=== PATIENT | female | born 1995 | race Caucasian/White ===

== ENCOUNTER 2017-06-15 10:12 | Inpatient (IN) | payer OTHER ==
[~2017-06-15] VITALS: Ht 162.6 cm; Wt 45.4 kg
--- NOTE | ~2017-06-15 | FU ---
[facility] Nutrition Therapy DATE: 06/18/17 Patient: KARIN FELIX Physician: SRIRAM Address: [address] [facility] Room/Bed: [address] [place] [address], Zip: [place] [address] Admit Date: 06/15/17 Date of : [birth year] Height: 5 4 Weight: 100 45.4 NUTRITION MONITORING/FOLLOW-UP: Reason: DIET EDUCATION CONSULT RE: GASTROPARESIS RD PROVIDED WRITTEN AND VERBAL GASTROPARESIS DIET EDUCATION. RD PROVIDED LIST OF FOODS TO AVOID/LIMIT AND FOODS TO EAT MORE OFTEN. PT REPORTS CONSUMING FRIED FOODS WELL DRINKING SODAS DAILY. RD ENCOURAGED HEALTHER OPTIONS OF COOKING FOODS AND ENCOURAGED PT TO CUT BACK ON SODA INTAKE AND DRINK MORE WATER. PT DEMONSTRATED UNDERSTANDING OF THE TOPIC. RD WAS ABLE TO ANSWER QUESTIONS APPROPRIATELY. RD TO REMAIN AVAILABLE. RECOMMENDATIONS: 1. ADVANCE DIET TOLERATED OT LOW FAT RD WILL F/U PER PROTOCOL Respectfully, MIESHA MARTINEZ MS, RD, LD [facility] cc: client file
--- NOTE | ~2017-06-15 | DS ---
Unit #: [id number] #: [id number] Patient: KARIN FELIX [id number] [address] [place], [place] [address] [id number] I MR#: [id number] NAME: KARIN FELIX ROOM: 238 Age: 21 Sex: F Admission Date: 06/15/2017 : 1995 Discharge Date: 06/18/2017 Attending Physician: Donny Jean Baptiste M.D. Primary Care Physician: Irene Saldaña M.D. DISCHARGE SUMMARY REASON FOR ADMISSION Intractable nausea, vomiting, abdominal pain/diarrhea. HISTORY OF PRESENT ILLNESS/HOSPITAL COURSE Patient is a 21-year-old female with no significant past medical history, presented secondary to nausea, vomiting, diarrhea, abdominal pain. Sodium initially was noted to be 125, potassium 2.9. She was placed on Med/Surg floor. CT abdomen and pelvis was performed which was negative. No acute process which was noted. Patient underwent ultrasound of her gallbladder secondary to her belief that she was told that she may have gallbladder issues in the past. This was negative and/or normal. Patient underwent HIDA scan with CCK injection which did reveal a decreased ejection fraction of approximately 28%. We performed a diet/food trial to which she tolerated well. She was able to have a regular diet with no IV Zofran and/or nausea medications that were required. Therefore, at this particular time in regards to her decreased/diminished ejection fraction from gallbladder, patient has been instructed to follow up with [facility], Dr. Manolo Galvin and associates, as an outpatient for consideration for outpatient laparoscopic cholecystectomy. Her electrolytes have been since corrected and at time of discharge are within normal limits. Initial UA was positive, however, final urine culture results are normal. Plans have been reviewed with patient in detail. She will be given a prescription for Pepcid 20 mg p.o. b.i.d. at time of discharge and she will be instructed to follow up with Dr. Galvin as an outpatient for consideration of laparoscopic cholecystectomy. FINAL DISCHARGE DIAGNOSIS 1. Hyponatremia on admission, now resolved. 2. Hypokalemia on admission, now resolved. 3. Intractable nausea, vomiting, now improved. 4. Diminished/dysfunctioning gallbladder with diminished ejection fraction 28%. FINAL DISCHARGE MEDICATIONS Pepcid 20 mg p.o. b.i.d. Unit #: [id number] #: [id number] Patient: KARIN FELIX Dictated by... Mateo Fenton/geronimo TD: 06/21/2017 14:31 JOB #: [id number] DISCHARGE SUMMARY Page 1 of 1 X Donny Jean Baptiste MD X DISCHARGE SUMMARY
--- NOTE | ~2017-06-15 | US67 ---
[facility] A Service of [facility] & [facility] RADIOLOGY TEXT RESULTS PATIENT: KARIN FELIX LOCATION: [place] [id number] : [birth year] UNIT #: [id number] AGE: [address]: Donny Jean Baptiste MD SEX: F ORDER DR: [id number] [facility] [address]. [place], [place] [address] [id number] I MR#: [id number] Acc #: [id number] NAME: KARIN FELIX : 1995 SEX: F STUDY DATE/TIME: 06/16/2017 17:51 UNIT: C3A PCU ROOM: [facility] STUDY DESCRIPTION: Gallbladder Attending Physician: Donny Jean Baptiste M.D. Ordering Physician: Donny Jean Baptiste M.D. Primary Care Physician: Irene Saldaña M.D. MEDICAL IMAGING REPORT This report is preliminary unless electronic signature is present EXAM Gallbladder sonogram. CLINICAL HISTORY Nausea and vomiting for a year. Stopped and started again 3 days ago. FINDINGS Real-time examination demonstrates the liver to be of normal size, shape, and echogenicity. No ductal dilatation. Gallbladder free of stones or wall thickening. Common duct measures 1.7 mm. Visualized right kidney appears normal. The visualized pancreas unremarkable. No free fluid. IMPRESSION Normal gallbladder and right upper quadrant sonogram. Dictated by... Chapis Bajwa M.D. THIS IS AN ELECTRONICALLY VERIFIED REPORT Chapis Bajwa M.D. at 06/17/2017 2:05 PM HARVEY/gabrielle TD: 06/16/2017 21:05 JOB #: [id number] MEDICAL IMAGING REPORT Page 1 of 1 COPY
--- NOTE | ~2017-06-15 | CR63 ---
[facility] A Service of [facility] RADIOLOGY TEXT RESULTS PATIENT: KARIN FELIX LOCATION: [facility] 333-01 : [birth year] UNIT #: [id number] AGE: [address]: Donny Jean Baptiste MD SEX: F ORDER DR: [id number] [facility] [address] [facility]. [place], [place] [address] [id number] I MR#: [id number] Acc #: [id number] NAME: KARIN FELIX : 1995 SEX: F STUDY DATE/TIME: 06/15/2017 19:33 UNIT: [address] ROOM: [facility] STUDY DESCRIPTION: CR Chest 2 View Attending Physician: Marion Sharp M.D. Ordering Physician: Marion Sharp M.D. Primary Care Physician: Irene Saldaña M.D. MEDICAL IMAGING REPORT This report is preliminary unless electronic signature is present EXAM Two-view chest 06/15/2017 HISTORY 21-year-old female with shortness of air for 3 months. Hyponatremia. COMPARISON None. FINDINGS Two views of the chest demonstrate clear lungs. No pleural effusion or pneumothorax. Heart size and mediastinum are normal. Pulmonary vasculature normal. IMPRESSION No acute cardiopulmonary findings. Dictated by... Wayne Rueda M.D. THIS IS AN ELECTRONICALLY VERIFIED REPORT Wayne Rueda M.D. at 06/16/2017 1:19 PM JUSTINE/tere TD: 06/15/2017 23:31 JOB #: [id number] MEDICAL IMAGING REPORT Page 1 of 1 COPY
--- NOTE | ~2017-06-15 | A ---
[facility] Nutrition Therapy DATE: 06/16/17 Patient: KARIN FELIX Physician: SRIRAM Address: [address] [place] [address] Room/Bed: [address] [place] [address], Zip: [place] [address] Admit Date: 06/15/17 Date of : [birth year] Height: 5 4 Weight: 98 44.6 NUTRITIONAL ASSESSMENT: REASON: Low BMI PMH: OLOP (DEPRESSION), EGD(?) Anthropometrics: HT:64" WT:44.6KG BMI:16.8 IBW:120 %IBW:82% Labs: Na+:130, Cl-:97 Meds: NaCl-, Bentyl, Bacitracin, PPi, Zofran, MgSO4-, KCl I/O & Bowel function: 3 BM's noted Skin Integrity: No skin breakdown noted. Estimated Nutrition Needs: Increased needs 2' to weight loss noted and clinically underweight BMI. Diet: NPO Assessment: Chart reviewed, evens noted. Pt admitted with N/V/D, abdominal pain and hyponatremia. RD and program management intern spoke with the pt at bedside. Pt states that she has been dealing with N/V/D for about a week now. She has dropped from ~106# to ~98#, pt notes a loss of ~7-8# over ~one week. Pt reports eating 3 meals daily and having a normal appetite prior to this. Pt states that greasy/spicy foods exacerbate the pain in her abdomen. Pt reports feeling nauseated when she wakes up. Pt is currently NPO and planned for an ultrasound for possible cholelithiasis. Will follow-up per protocol. Dx: Inadequate protein-energy intake R/T N/V/D, abodminal pain AEB 8# weight loss in one week, low BMI. Intervention: 1. Once medically feasible, advance to regular diet. Monitoring, Evaluation and Goals: 1. Oral intake; Tolerate PO intake (once diet advances) without c/o N/V/D. 2. Prevent further weight loss; promote healthy weight maintenance/gain. 3. Lytes WNL. Monitor: per protocol, criteria to determine whether above goals met [facility] Nutrition Therapy DATE: 06/16/17 Patient: KARIN FELIX Physician: SRIRAM Address: [address] [place] [address] Room/Bed: [address] [place] [address], Zip: [place] [address] Admit Date: 06/15/17 Date of : [birth year] Height: 5 4 Weight: 98 44.6 Recommendations: 1. Weigh pt q 3 days for monitoring purposes. 2. Add MVI w/mineral to pt's current medication regimen. 3. Continue replacing lytes prn. 4. Advance diet as tolerated. Pt may require low fat diet pending results of gallbladder U/S. 5. Once advanced to PO diet, please order Ensure BID. Pt is at mild-moderate nutritional risk. Respectfully, JALEESA ANGEL RD, LD Food and Nutritional Services [facility] cc: client file
--- NOTE | ~2017-06-15 | NM22 ---
[facility] A Service of [facility] RADIOLOGY TEXT RESULTS PATIENT: KARIN FELIX LOCATION: A 238-01 : [birth year] UNIT #: [id number] AGE: [address]: Donny Jean Baptiste MD SEX: F ORDER DR: [id number] [place] [id number] [facility]. [place], [place] [address] [id number] I MR#: [id number] Acc #: [id number] NAME: KARIN FELIX : 1995 SEX: F STUDY DATE/TIME: 06/17/2017 9:28 UNIT: [facility] ROOM: [facility] STUDY DESCRIPTION: NM Hepatobiliary W GB Pharm Attending Physician: Donny Jean Baptiste M.D. Ordering Physician: Donny Jean Baptiste M.D. Primary Care Physician: Irene Saldaña M.D. MEDICAL IMAGING REPORT This report is preliminary unless electronic signature is present EXAM HIDA scan with Kinevac, 06/17/2017. HISTORY Nausea, vomiting, constipation, epigastric pain after meals, early satiety. Symptoms since 20 years old intermittently. Gastroparesis diagnosed at age of 20. COMPARISON Gallbladder ultrasound 06/16/2017, CT abdomen and pelvis 06/15/2017. TECHNIQUE Following the intravenous administration of 5.87 mCi technetium-99m Choletec, anterior planar imaging was obtained of the abdomen at 15-minute intervals for 1 hour. FINDINGS Normal radiopharmaceutical uptake is demonstrated within the liver. The gallbladder is promptly visualized within the first 15 minutes of imaging. There is clearance of radiopharmaceutical into the small bowel over the course of the examination. These findings indicate patency of both the cystic and common bile ducts. Subsequently, 0.9 mcg Kinevac was administered intravenously, and a time-activity curve was generated. The calculated gallbladder ejection fraction is 28% (normal at this institution is 35% or greater). IMPRESSION 1. Low gallbladder ejection fraction 28% (normal at this institution considered 35% or greater). 2. No scintigraphic evidence of acute or chronic cholecystitis. [facility] A Service of [facility] RADIOLOGY TEXT RESULTS PATIENT: KARIN FELIX LOCATION: [facility] 238-01 : [birth year] UNIT #: [id number] AGE: [address]: Donny Jean Baptiste MD SEX: F ORDER DR: Dictated by... Jaquelin Smith M.D. THIS IS AN ELECTRONICALLY VERIFIED REPORT Jaquelin Smith M.D. at 06/18/2017 8:54 AM NIC/gopal TD: 06/17/2017 17:16 JOB #: [id number] MEDICAL IMAGING REPORT Page 1 of 1 COPY
--- NOTE | ~2017-06-15 | CT2 ---
[facility] A Service of [facility] RADIOLOGY TEXT RESULTS PATIENT: KARIN FELIX LOCATION: [facility] PC 333- : [birth year] UNIT #: [id number] AGE: [address]: Marion Sharp MD SEX: F ORDER DR: [id number] [place] [id number] [facility]. [place], [place] [address] [id number] I MR#: [id number] Acc #: [id number] NAME: KARIN FELIX : 1995 SEX: F STUDY DATE/TIME: 06/15/2017 14:27 UNIT: CEDOF ROOM: 20494 STUDY DESCRIPTION: CT Abd and Pelv W Cont Attending Physician: Marion Sharp M.D. Ordering Physician: Irma Tapia M.D. Primary Care Physician: Irene Saldaña M.D. MEDICAL IMAGING REPORT This report is preliminary unless electronic signature is present EXAM CT abdomen and pelvis with contrast HITORY Vomiting, unable to eat for 4 days. COMPARISON: CT abdomen and pelvis 01/15/2016, gastric emptying study 03/17/2017 FINDINGS Axial images performed through the abdomen and pelvis following IV and oral contrast. Multiplanar reconstructed images reviewed. The CT exam was performed with one or more of the following radiation dose reduction techniques: automatic exposure control, adjustment of mA and/or kV according to patient size, and iterative reconstruction. ABDOMEN: Lung bases unremarkable except for a small 3 mm nodule noncalcified left lower lobe probably represents a noncalcified granuloma. It is unchanged from prior studies and is of no clinical significance. Liver, spleen, gallbladder, pancreas, kidneys and adrenal glands unremarkable. The visualized GI tract appears normal. The appendix not clearly identified as a distinct structure but no inflammatory changes identified. Retroperitoneum unremarkable. PELVIS: Bladder, uterus and adnexa appear normal. Osseous structures and soft tissues appear normal. IMPRESSION Normal CT abdomen and pelvis. Dictated by... [facility] A Service [facility] RADIOLOGY TEXT RESULTS PATIENT: KARIN FELIX LOCATION: [facility] 333- : 97 UNIT #: [id number] AGE: [address]: Marion Sharp MD SEX: F ORDER DR: Chapis Bajwa M.D. THIS IS AN ELECTRONICALLY VERIFIED REPORT Chapis Bajwa M.D. at 06/15/2017 8:48 PM HARVEY/kiersten TD: 06/15/2017 18:25 JOB #: [id number] MEDICAL IMAGING REPORT Page 1 of 1 COPY
--- NOTE | ~2017-06-15 | HP ---
Unit #: [id number] #: [id number] Patient: KARIN FELIX [id number] [address] [place], [place] [address] [id number] MR#: [id number] NAME: KARIN FELIX ROOM: 91016 Age: 21 Sex: F Admission Date: 06/15/2017 : 1995 Attending Physician: Marion Sharp M.D. Primary Care Physician: Irene Saldaña M.D. HISTORY AND PHYSICAL CHIEF COMPLAINT Nausea, vomiting, and diarrhea. HISTORY OF PRESENT ILLNESS The patient is a 21-year-old female with no significant past medical history who presented to the emergency department for evaluation of the above. The patient states that she has had a four to five day history of abdominal pain, nausea, vomiting, and diarrhea. The abdominal pain is in the upper abdomen. She describes it as "sharp." It has been fairly constant in nature. It is alleviated somewhat by heat and hot water. It is exacerbated by eating. She reports more than 10 bouts of emesis and three bouts of diarrhea within the past 24 hours. She denies any fever, no cough or cold symptoms, and no urinary symptoms. Of note, the patient sees Dr. Ta as an outpatient. She has had an EGD within the past year, she thinks at [facility]. There are no records. She states that she was told she had a gallbladder problem. She was evaluated by an unknown surgeon who stated that she was "too young to have her gallbladder taken out." Today, in the emergency department, initial pulse and blood pressure were 99 and 135/98, respectively. CT of the abdomen and pelvis was done and normal. Laboratory notable for sodium of 125 and potassium is 2.9. She was given one liter of normal saline, as well as 4 mg of Zofran. She is being admitted to [facility] for evaluation and further treatment. PAST MEDICAL HISTORY 1. The patient denies hospitalization. 2. Possible "gallbladder problem" followed by Dr. Ta, not thought to be a surgical candidate at this time per the patient. PAST SURGICAL HISTORY EGD within the past year (no records). SOCIAL HISTORY The patient is currently living with a friend. There is no alcohol or illicit drug use. She denies tobacco use. 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 FAMILY HISTORY Notable for her maternal grandmother having "low sodium." Unit #: [id number] #: [id number] Patient: KARIN FELIX ALLERGIES No known allergies. MEDICATIONS Home medications are listed as Zofran, dicyclomine, famotidine, and promethazine. Home medications will need to be reviewed and verified. REVIEW OF SYSTEMS A complete review of systems is negative except as indicated in the HPI. The patient states that she thinks she has lost a couple of pounds with this illness. PHYSICAL EXAMINATION VITAL SIGNS: Temperature is 98.5, pulse 99, respirations 16, blood pressure 135/98, and oxygen saturation 100% on room air. GENERAL: Patient is a female who is awake, alert, and in no acute distress. HEENT: Head is atraumatic. Mucous membranes are moist. NECK: Supple. Trachea is midline. CARDIOVASCULAR: Regular rate and rhythm. LUNGS: Clear to auscultation bilaterally with no increased work of breathing. ABDOMEN: Soft and nontender with bowel sounds present in all four quadrants. EXTREMITIES: Nontender with no pedal edema. NEUROLOGIC: Patient is awake and alert. She follows commands. PSYCHIATRIC: Mood and affect are normal. Patient is cooperative. SKIN: Skin of examined areas is warm and dry. DIAGNOSTIC STUDIES LABORATORY: Complete blood count notable for white blood cell count of 14.8 and hemoglobin and hematocrit 16.8 and 45.8, respectively. Urinalysis notable for 2+ protein, 1+ bacteria, and moderate squamous cells. Comprehensive metabolic panel notable for a sodium of 125, potassium is 2.9, chloride 83, glucose 118, BUN and creatinine 25 and 1, respectively, total protein is 9.3, and albumin is 5.8. Lipase is 28. IMAGING: CT of the abdomen and pelvis is normal. ASSESSMENT The patient is a 21-year-old female with: 1. Hyponatremia. The patient's sodium is 125 with no baseline for comparison. The patient does seem to be volume depleted, although she does not have any ketones in her urine. She states that she has had nausea, vomiting, and diarrhea for the past four days. 2. Nausea, vomiting, and diarrhea. 3. Abdominal pain with negative CT of the abdomen and pelvis. 4. Hypokalemia with initial potassium of 2.9. 5. Leukocytosis. Again, the patient appears to be somewhat volume depleted, and this may be hemoconcentration. There is no obvious source of infection. Urinalysis does show bacteria, as well as moderate squamous cells. I have not started antibiotics. PLAN 1. Admit to low-level monitor. 2. Advance to clear liquids as tolerated. 3. Normal saline at 75 mL/hour. 4. Chest x-ray for further evaluation of hyponatremia and leukocytosis. Unit #: [id number] #: [id number] Patient: KARIN FELIX 5. Urine sodium and osmolality. 6. Serum osmolality. 7. BMPs q.6 hours. 8. Verify home medications to make sure these are not contributing to hyponatremia. 9. Check urine tox screen. 10. P.r.n. Zofran. 11. Stool studies including ova and parasites, C. difficile, culture and sensitivity. 12. Get EGD report from [facility]. 13. Check magnesium level. 14. Potassium/magnesium protocol. 15. Blood cultures x2 for further evaluation of leukocytosis. 16. Urine culture and sensitivity on urine in the lab. 17. Repeat labs in the morning including magnesium. 18. SCDs for DVT prophylaxis. 19. Additional workup and consultants based on above. 1. Dictated by Mateo Ferrari/alen TD: 06/15/2017 18:09 JOB #: [id number] HISTORY AND PHYSICAL Page 1 of 1 X Marion Sharp MD X HISTORY AND PHYSICAL
[2017-06-15 10:41] LABS: URINE SOURCE CLEAN CATCH
[2017-06-15 10:45] LABS: URINE APPEARANCE CLOUDY; URINE BILIRUBIN NEG (NEG); URINE BLOOD NEG (NEG); URINE COLOR YELLOW; URINE GLUCOSE NEG (NEG); URINE KETONE NEG (NEG); URINE LEUKOCYTE ESTERASE NEG (NEG); URINE NITRATE NEG (NEG); URINE PROTEIN 2+ (NEG); URINE SPECIFIC GRAVITY 1.033 (1.003-1.035)
[2017-06-15 10:47] LABS: BASOPHIL% 0.2 % (0-2.5); DIFF IND NO; EOSINOPHIL% 0.2 % (0.0-7.0); HEMATOCRIT 45.8 % (35.0-45.0); HEMOGLOBIN 16.2 gm/dL (12.0-16.0); LYMPHOCYTE# 2.3 X10e3 (1.0-3.5); LYMPHOCYTE% 15.8 % (17.0-45.0); MEAN CORPUSCULAR HEMOGLOBIN 30.1 PG (28-34); MEAN CORPUSCULAR HGB CONC 35.4 g/dL (30-36); MEAN PLATELET VOLUME 9.1 FL (6.5-11.5); MONOCYTE# 1.4 X10e3 (0-1.0); MONOCYTE% 9.3 % (3.0-12.0); NEUTROPHIL% 74.5 % (40-75); PLATELET COUNT 265 X10e3 (140-420); RED BLOOD COUNT 5.39 X10e (3.90-5.30); RED CELL DISTRIBUTION WIDTH 12.6 % (11.0-15.5); WHITE BLOOD COUNT 14.8 X10e3 (4.0-10.5)
[2017-06-15 10:48] LABS: CULTURE INDICATED? YES; URINE BACTERIA AUWI 1+ (NEGATIVE); URINE SQUAMOUS EPITHELIAL CELL MOD /[HPF]
[2017-06-15 11:07] LABS: URBCS1 AUWI 0-2 /[HPF] (0-2)
[2017-06-15 11:08] LABS: URINE GRANULAR CAST 0-2 /[HPF]; URINE MUCUS PRESENT
[2017-06-15 11:21] LABS: ALBUMIN SERUM 5.8 g/dL (3.5-5.0); BILIRUBIN, DIRECT 0.2 mg/dL (0.0-0.2); BILIRUBIN,TOTAL 1.2 mg/dL (0.2-2.0); GLOM FILT RATE Estimated 81.6 mL/min (>60); PROTEIN TOTAL SERUM 9.3 g/dL (6.0-8.3)
[2017-06-15 11:23] LABS: POTASSIUM 2.9 mmol/L (3.5-5.1)
[2017-06-16 01:01] LABS: CALCIUM SERUM 8.6 mg/dL (8.4-10.2); CREATININE SERUM 0.8 mg/dL (0.6-1.4); POTASSIUM 3.2 mmol/L (3.5-5.1)
[2017-06-16 06:08] LABS: HEMATOCRIT 36.3 % (35.0-45.0); MEAN CELL VOLUME 85.9 FL (83-96); MEAN CORPUSCULAR HEMOGLOBIN 30.4 PG (28-34); MEAN CORPUSCULAR HGB CONC 35.4 g/dL (30-36); MEAN PLATELET VOLUME 9.2 FL (6.5-11.5); RED BLOOD COUNT 4.23 X10e (3.90-5.30); RED CELL DISTRIBUTION WIDTH 12.6 % (11.0-15.5); WHITE BLOOD COUNT 10.1 X10e3 (4.0-10.5)
[2017-06-16 06:17] LABS: HEMOGLOBIN 12.9 gm/dL (12.0-16.0)
[2017-06-16 06:39] LABS: ALBUMIN SERUM 4.1 g/dL (3.5-5.0); BILIRUBIN,TOTAL 0.8 mg/dL (0.2-2.0); BUN/CREATININE RATIO 21.42; CALCIUM SERUM 8.5 mg/dL (8.4-10.2); CREATININE SERUM 0.7 mg/dL (0.6-1.4); GLOM FILT RATE Estimated 125.6 mL/min (>60); MAGNESIUM 2.5 mg/dL (1.6-3.0); POTASSIUM 3.7 mmol/L (3.5-5.1); PROTEIN TOTAL SERUM 6.7 g/dL (6.0-8.3)
[2017-06-16 08:44] LABS: SODIUM URINE RANDOM <10 mmol/L
[2017-06-16 08:47] LABS: AMPHETAMINE NEG (NEG); BARBITURATES NEG (NEG); BENZODIAZEPINES NEG (NEG); COCAINE NEG (NEG); MARIJUANA POS (NEG); OPIATES NEG (NEG); TRICYCLIC ANTIDEPRESSANTS NEG (NEG); U METHADONE NEG (NEG)
[2017-06-16 10:40] LABS: OSMOLALITY,URINE 714 mOsmo/kg (250-900)
[2017-06-17 05:24] LABS: HEMATOCRIT 33.1 % (35.0-45.0); HEMOGLOBIN 11.5 gm/dL (12.0-16.0); MEAN CELL VOLUME 88.1 FL (83-96); MEAN CORPUSCULAR HEMOGLOBIN 30.7 PG (28-34); MEAN CORPUSCULAR HGB CONC 34.8 g/dL (30-36); MEAN PLATELET VOLUME 9.2 FL (6.5-11.5); RED BLOOD COUNT 3.76 X10e (3.90-5.30); RED CELL DISTRIBUTION WIDTH 12.4 % (11.0-15.5); WHITE BLOOD COUNT 6.6 X10e3 (4.0-10.5)
[2017-06-17 05:46] LABS: BUN/CREATININE RATIO 11.42; CALCIUM SERUM 8.2 mg/dL (8.4-10.2); CREATININE SERUM 0.7 mg/dL (0.6-1.4); GLOM FILT RATE Estimated 125.6 mL/min (>60); POTASSIUM 3.7 mmol/L (3.5-5.1)
[2017-06-18 06:45] LABS: POTASSIUM 4.2 mmol/L (3.5-5.1)
[2017-06-18] MEDS ORDERED: FAMOTIDINE PO (13:47)
== END 2017-06-18 14:25 | disposition home or self-care (01) | DRG 641 ==
LOC: CED 10:12 → C3A PCU 16:20 → CEDOF 16:20 → CED 17:03 → C3A PCU 18:31 → CEDOF 18:31 → C3A PCU 06-16 07:32 → C2A 06-17 09:05
PROVIDERS: Family Medicine
DX: E87.1 Hypo-osmolality and hyponatremia (principal); E87.6 Hypokalemia; R11.2 Nausea with vomiting, unspecified; R19.7 Diarrhea, unspecified; K82.8 Other specified diseases of gallbladder; D72.829 Elevated white blood cell count, unspecified
CPT/HCPCS: 36415; 71020; 74177; 76705; 78227; 80048; 80053; 80076; 80307; 81003; 83690; 83735; 83930; 83935; 84132; 84300; 84703; 85025; 85027; 86677; 87040; 87045; 87086; 87177; 87209; 87427; 87493; 87899; 96361; 96374; 99285; A9537; C9113; J2405; J2805; Q9967